=== PATIENT | female | born 1990 | race Two or more races ===

== ENCOUNTER 2019-12-09 22:46 | Inpatient (IN) | payer MEDICAID ==
[~2019-12-09] VITALS: Ht 152.4 cm; Wt 72.6 kg
[2019-12-10] MEDS ORDERED: MISOPROSTOL 100MCG TABLET VG PRN (00:15)
[2019-12-10] MEDS ORDERED: LIDOCAINE HCL 1% 20ML VIAL (Pyxis) INJ INFIL SCH (00:15)
[2019-12-10] MEDS ORDERED: METHYLERGONOVINE MALEATE 0.2 MG/ML IM PRN ×2 (00:15→21:30)
[2019-12-10] MEDS ORDERED: NALOXONE HCL 0.4 MG/ML 1ML VIAL IM PRN (00:15)
[2019-12-10] MEDS ORDERED: CARBOPROST TROMETHAMINE 250 MCG/ML AMPUL IM PRN (00:15)
[2019-12-10 00:41] LABS: BASOPHILS % 0.5 % (0.0-2.0); EOSINOPHILS % 1.3 % (0.0-5.0); HEMATOCRIT. 36.7 % (36.0-48.0); HEMOGLOBIN. 12.1 g/dL (12.0-16.0); LYMPHOCYTES % 18.9 % (20.0-50.0); MEAN CORPUSCULAR HEMOGLOBIN 27.6 pg (28.0-32.0); MEAN CORPUSCULAR VOLUME 83.8 fL (81.0-99.0); MONOCYTES % 10.4 % (2.0-8.0); NEUTROPHILS % 68.9 % (40.0-76.0); PLATELET 299 x1000/uL (130-400); RED BLOOD CELL COUNT 4.38 mill/uL (4.2-5.4); RED CELL DISTRIBUTION WIDTH 14.5 % (11.6-14.6)
[2019-12-10 00:53] LABS: INR 0.9; PROTHROMBIN TIME 10.1 sec (9.6-11.0)
[2019-12-10 00:57] LABS: CLARITY URINE CLOUDY (CLEAR); COLOR URINE YELLOW (YELLOW); KETONES URINE TRACE (NEGATIVE); LEUKOCYTE ESTERASE URINE 3+ (NEGATIVE); NITRITE URINE NEGATIVE (NEGATIVE); OCCULT BLOOD URINE TRACE (NEGATIVE); PH URINE 6.5 (4.5-8.0); PROTEIN URINE NEGATIVE (NEGATIVE); SPECIFIC GRAVITY URINE 1.012 (1.005-1.030); UROBILINOGEN URINE 0.2 E.U./dL (0.2-1.0)
[2019-12-10] MEDS: MISOPROSTOL 100MCG TABLET VG SCH ×3 (01:08→05:15)
[2019-12-10] MEDS: LACTATED RINGERS 1,000 ML IV SCH ×2 (01:08→13:39)
[2019-12-10 01:18] LABS: *AMPHETAMINES SCREEN URINE NEGATIVE (NEGATIVE); *BARBITURATES SCREEN URINE NEGATIVE (NEGATIVE); *BENZODIAZEPINES SCREEN URINE NEGATIVE (NEGATIVE); *COCAINE SCREEN URINE NEGATIVE (NEGATIVE); METHADONE URINE SCREEN NEGATIVE (NEGATIVE)
[2019-12-10 01:19] LABS: CANNABINOID URINE SCREEN NEGATIVE (NEGATIVE); OPIATES URINE SCREEN NEGATIVE (NEGATIVE); PHENCYCLIDINE URINE SCREEN NEGATIVE (NEGATIVE)
[2019-12-10 01:34] LABS: HEPATITIS B SURFACE ANTIGEN NEGATIVE
[2019-12-10] MEDS ORDERED: PNV1TABL50 PO (04:19)
[2019-12-10] MEDS ORDERED: SODIUM CHLORIDE 0.9% IRRIG SOLUTION 1000ML IR ONE (08:00)
[2019-12-10] MEDS: DEXT 5%/LR + PITOCIN 20UNITS/L 1,000 ML IV SCH ×2 (09:54→22:16)
[2019-12-10] MEDS: BUTORPHANOL TARTRATE 2 MG/ML VIAL IV PRN ×2 (10:04→12:12)
[2019-12-10] MEDS ORDERED: ROPIVACAINE HCL/PF EPIDURAL 200 ML EPI SCH (13:00)
[2019-12-10] MEDS ORDERED: LACTATED RINGERS 1,000 ML IV SCH (14:30)
[2019-12-10] MEDS ORDERED: AMPICILLIN 2,000 MG in SODIUM CHLORIDE 0.9% 100 ML IV NR (18:30)
[2019-12-10] MEDS ORDERED: ACETAMINOPHEN 500MG TABLET PO NR (18:50)
[2019-12-10] MEDS ORDERED: GENTAMICIN 120MG PREMIX 100 ML IV NR (19:30)
[2019-12-10] MEDS ORDERED: ONDANSETRON HCL 4MG/2ML INJ IV PRN (19:45)
[2019-12-10] MEDS ORDERED: CEFAZOLIN 2,000 MG in DEXT 5% WATER 100 ML IV NR (20:00)
[2019-12-10] MEDS ORDERED: DEXT 5%/LR + PITOCIN 20UNITS/L 1,000 ML IV SCH (21:29)
[2019-12-10] MEDS ORDERED: BISACODYL 10MG SUPP PR PRN (21:30)
[2019-12-10] MEDS ORDERED: OXYCODONE HCL/ACETAMINOPHEN 5/325MG TABLET PO PRN (21:30)
[2019-12-10] MEDS ORDERED: BENZOCAINE/LANOLIN/ALOE VERA SPRAY TOP PRN (21:30)
[2019-12-10] MEDS ORDERED: LANOLIN OINT 7GM TUBE TOP PRN (21:30)
[2019-12-10] MEDS ORDERED: RHO(D) IMMUNE GLOBULIN 300 MCG/SYR IM PRN (21:30)
[2019-12-10] MEDS ORDERED: DIPHENHYDRAMINE 25MG CAPSULE PO PRN (21:30)
[2019-12-10] MEDS ORDERED: HEMORRHOIDAL SUPP PR PRN (21:30)
[2019-12-10] MEDS ORDERED: GLYCERIN/WITCH HAZEL LEAF MEDICATED PAD TOP PRN (21:30)
[2019-12-10 22:50] VITALS: BP 98/60
[2019-12-10 23:15] VITALS: BP 103/61
[2019-12-11] VITALS: BP 104/59
[2019-12-11] MEDS: IBUPROFEN 400MG TABLET PO PRN ×2 (00:44→08:42)
[2019-12-11 02:00] VITALS: BP 102/60
[2019-12-11 04:00] VITALS: BP 92/63
[2019-12-11] MEDS ORDERED: MEASLES,MUMPS&RUBELLA VACCINE 1 VIAL SUBCUT ONE (06:00)
[2019-12-11 07:39] VITALS: BP 94/56
[2019-12-11 08:06] LABS: HEMATOCRIT. 28.5 % (36.0-48.0); HEMOGLOBIN. 9.5 g/dL (12.0-16.0); MEAN CORPUSCULAR HEMOGLOBIN 27.7 pg (28.0-32.0); MEAN CORPUSCULAR VOLUME 83.3 fL (81.0-99.0); MEAN PLATELET VOLUME 8.3 fl (7.4-10.4); PLATELET 242 x1000/uL (130-400); RED BLOOD CELL COUNT 3.43 mill/uL (4.2-5.4); RED CELL DISTRIBUTION WIDTH 14.4 % (11.6-14.6)
[2019-12-11] MEDS: PRENATAL VIT/FE FUMARATE/FA TABLET PO SCH (08:42)
[2019-12-11] MEDS: SIMETHICONE 80MG TABLET CHEW PO SCH ×4 (08:43→20:42)
[2019-12-11] MEDS: FERROUS SULFATE 325MG TABLET PO SCH ×3 (08:43→17:41)
[2019-12-11 12:50] LABS: PLATELET ESTIMATE NORMAL
[2019-12-11] MEDS: OXYCODONE HCL/ACETAMINOPHEN 5/325MG TABLET PO PRN ×3 (13:15→22:02)
[2019-12-11 15:19] VITALS: BP 94/52
[2019-12-11 15:54] LABS: HEMATOCRIT. 26.9 % (36.0-48.0); HEMOGLOBIN. 8.9 g/dL (12.0-16.0); MEAN CORPUSCULAR HEMOGLOBIN 27.8 pg (28.0-32.0); RED CELL DISTRIBUTION WIDTH 14.5 % (11.6-14.6)
[2019-12-11 16:13] LABS: MEAN PLATELET VOLUME 7.9 fl (7.4-10.4); PLATELET 208 x1000/uL (130-400)
[2019-12-11] MEDS ORDERED: DOCUSATE SODIUM 100MG CAPSULE PO SCH (21:00)
[2019-12-11 22:00] VITALS: BP 100/62
[2019-12-11 22:59] LABS: PLATELET ESTIMATE NORMAL
[2019-12-12] MEDS ORDERED: ACETAMINOPHEN 325MG TABLET PO PRN (05:30)
[2019-12-12 05:53] VITALS: BP 112/73
[2019-12-12] MEDS: AMPICILLIN 2,000 MG in SODIUM CHLORIDE 0.9% 100 ML IV SCH ×3 (06:35→18:04)
[2019-12-12] MEDS ORDERED: CLINDAMYCIN 600MG PREMIX 50 ML IV SCH (07:00)
[2019-12-12 07:02] LABS: BASOPHILS % 0.3 % (0.0-2.0); EOSINOPHILS % 0.7 % (0.0-5.0); LYMPHOCYTES % 10.1 % (20.0-50.0); MEAN CORPUSCULAR HEMOGLOBIN 27.8 pg (28.0-32.0); MEAN CORPUSCULAR VOLUME 83.3 fL (81.0-99.0); MEAN PLATELET VOLUME 8.2 fl (7.4-10.4); MONOCYTES % 6.3 % (2.0-8.0); NEUTROPHILS % 82.6 % (40.0-76.0); PLATELET 248 x1000/uL (130-400); RED BLOOD CELL COUNT 3.24 mill/uL (4.2-5.4); RED CELL DISTRIBUTION WIDTH 14.5 % (11.6-14.6)
[2019-12-12] MEDS: CLINDAMYCIN 900 MG PREMIX 50 ML IV SCH ×3 (07:13→20:49)
[2019-12-12 07:30] VITALS: BP 101/60
[2019-12-12] MEDS: SIMETHICONE 80MG TABLET CHEW PO SCH ×4 (07:32→20:49)
[2019-12-12] MEDS: PRENATAL VIT/FE FUMARATE/FA TABLET PO SCH (08:11)
[2019-12-12] MEDS: FERROUS SULFATE 325MG TABLET PO SCH ×3 (08:11→17:26)
[2019-12-12] MEDS: GENTAMICIN 80MG PREMIX 100 ML IV SCH ×3 (08:21→23:33)
[2019-12-12 09:54] LABS: CHLORIDE 109 mEq/L (98-107)
[2019-12-12] MEDS: OXYCODONE HCL/ACETAMINOPHEN 5/325MG TABLET PO PRN (10:12)
[2019-12-12 15:52] VITALS: BP 107/70
[2019-12-12 19:50] VITALS: BP 115/62
[2019-12-13 00:25] VITALS: BP 114/70
[2019-12-13] MEDS: AMPICILLIN 2,000 MG in SODIUM CHLORIDE 0.9% 100 ML IV SCH ×2 (00:47→06:40)
[2019-12-13] MEDS: IBUPROFEN 400MG TABLET PO PRN ×2 (03:59→10:21)
[2019-12-13 04:15] VITALS: BP 93/55
[2019-12-13] MEDS: CLINDAMYCIN 900 MG PREMIX 50 ML IV SCH (04:53)
[2019-12-13 07:22] LABS: CHLORIDE 110 mEq/L (98-107)
[2019-12-13 07:24] LABS: BASOPHILS % 0.7 % (0.0-2.0); EOSINOPHILS % 3.1 % (0.0-5.0); HEMATOCRIT. 28.8 % (36.0-48.0); HEMOGLOBIN. 9.5 g/dL (12.0-16.0); MEAN CORPUSCULAR HEMOGLOBIN 27.4 pg (28.0-32.0); MEAN CORPUSCULAR VOLUME 83.2 fL (81.0-99.0); MEAN PLATELET VOLUME 7.9 fl (7.4-10.4); MONOCYTES % 11.3 % (2.0-8.0); NEUTROPHILS % 59.9 % (40.0-76.0); PLATELET 255 x1000/uL (130-400); RED BLOOD CELL COUNT 3.47 mill/uL (4.2-5.4); RED CELL DISTRIBUTION WIDTH 14.9 % (11.6-14.6)
[2019-12-13 07:29] LABS: GENTAMICIN RANDOM 0.6 ug/mL
[2019-12-13 08:00] VITALS: BP 106/62
[2019-12-13] MEDS: GENTAMICIN 80MG PREMIX 100 ML IV SCH (08:21)
== END 2019-12-13 12:30 | disposition home or self-care (01) | DRG 560 ==
LOC: 8 EST LDRP 22:46 → OBSVTOIN 22:46 → 8EST 12-10 22:24
PROVIDERS: ADMIT Obstetrics & Gynecology; ATTEND Obstetrics & Gynecology
PROC: 10D07Z6 Extraction of Products of Conception, Vacuum, Via Natural or Artificial Opening (ICD-10-PCS; principal; 2019-12-10)
PROC: 3E0R3BZ Introduction of Anesthetic Agent into Spinal Canal, Percutaneous Approach (ICD-10-PCS; 2019-12-10)
PROC: 00HU33Z Insertion of Infusion Device into Spinal Canal, Percutaneous Approach (ICD-10-PCS; 2019-12-10)
PROC: 0KQM0ZZ Repair Perineum Muscle, Open Approach (ICD-10-PCS; 2019-12-10)
PROC: 3E033VJ Introduction of Other Hormone into Peripheral Vein, Percutaneous Approach (ICD-10-PCS; 2019-12-10)
PROC: 3E0P7VZ Introduction of Hormone into Female Reproductive, Via Natural or Artificial Opening (ICD-10-PCS; 2019-12-10)
DX: O41.1230 Chorioamnionitis, third trimester, not applicable or unspecified (principal); O75.2 Pyrexia during labor, not elsewhere classified; O48.0 Post-term pregnancy; O69.1XX0 Labor and delivery complicated by cord around neck, with compression, not applicable or unspecified; O77.0 Labor and delivery complicated by meconium in amniotic fluid; O77.9 Labor and delivery complicated by fetal stress, unspecified; O70.1 Second degree perineal laceration during delivery; Z37.0 Single live birth; Z3A.40 40 weeks gestation of pregnancy
CPT/HCPCS: 36415; 76815; 80048; 80170; 80305; 81003; 85025; 86592; 86703; 86762; 86850; 86900; 87077; 87340; 88307; 90707; 99281; G0378; J0290; J0595; J0690; J1580; J2405; J2590; J2795; J3490; J7050; J7060; J7120